=== PATIENT | female | born 1930 | race Caucasian/White ===

== ENCOUNTER → 2018-05-26 | Outpatient (CLI) | payer MEDICARE, OTHER ==
--- NOTE | 2018-05-26 13:22 | Diagnostic Imaging Report ---
EXAMINATION: PA and lateral views of the chest. COMPARISON: None CLINICAL HISTORY: Cough DISCUSSION: Lungs are well-inflated. Biapical pleural-parenchymal scarring and coarse prominence of the pulmonary interstitium, likely age-related fibrotic change. No airspace consolidation, pleural effusion, or pneumothorax. Tortuous thoracic aorta with atherosclerotic calcification. Normal heart size without overt pulmonary edema. Healing or healed right clavicular fracture deformity. No acute osseous abnormality. Presumed gastric band apparatus projects over the mid epigastrium. IMPRESSION: No acute cardiopulmonary abnormality. No consolidative pneumonia. Signed by: Dr. Sen Rubio M.D. on 05/26/2018 1:19 PM
== END ==
LOC: RAD 12:34
PROVIDERS: ATTEND Internal Medicine
DX: R05 Cough (principal)
CPT/HCPCS: 71046

== ENCOUNTER 2018-10-02 11:47 | Emergency (ER) | payer MEDICARE, OTHER ==
[~2018-10-02] VITALS: Ht 157.5 cm; Wt 59.0 kg
[2018-10-02] MEDS ORDERED: CITRACAL + D E1 EACH PO (12:04)
[2018-10-02] MEDS ORDERED: VITAMIN B-121000 MCG PO (12:04)
[2018-10-02] MEDS ORDERED: VITAMIN D1000 UNI1 PO (12:04)
[2018-10-02] MEDS ORDERED: EVISTA60 MG PO (12:04)
[2018-10-02] MEDS ORDERED: ETODOLAC400 M1 PO (12:04)
[2018-10-02] MEDS ORDERED: PRAVASTATIN SOD80 MG PO (12:04)
[2018-10-02] MEDS ORDERED: TRIAMTERENE-HCTZ1 EA PO (12:04)
[2018-10-02] MEDS ORDERED: JANUVIA100 MG PO (12:04)
[2018-10-02] MEDS ORDERED: FLONASE (12:04)
[2018-10-02] MEDS ORDERED: LEVOTHYROXINE75 MCG PO (12:04)
[2018-10-02] MEDS ORDERED: ACTOS30 MG PO (12:04)
[2018-10-02] MEDS ORDERED: NEXIUM40 MG PO (12:04)
[2018-10-02 12:19] LABS: BASOPHILS % 0.4 % (0.0-1.0); EOSINOPHILS # (AUTO) 0.2 (0.0-0.4); EOSINOPHILS % 2.5 % (0.0-6.0); HEMATOCRIT 36.7 % (34.2-44.1); LYMPHOCYTES # (AUTO) 1.5 (1.0-3.2); LYMPHOCYTES % 16.7 % (18.0-39.1); MEAN CORPUSCULAR HEMOGLOBIN 31.3 pg (28-32); MEAN CORPUSCULAR HGB CONC 32.7 g/dL (31-35); MEAN CORPUSCULAR VOLUME 95.6 fL (81-99); MONOCYTES # (AUTO) 0.4 (0.2-0.8); MONOCYTES % 4.2 % (4.4-11.3); NEUTROPHILS # (AUTO) 6.9 (2.1-6.9); NEUTROPHILS % 75.4 % (38.7-80.0); PLATELET COUNT 223 x10e3/uL (140-360); RED BLOOD COUNT 3.84 x10e6/uL (3.6-5.1); RED CELL DISTRIBUTION WIDTH 14.7 % (11.7-14.4)
[2018-10-02 12:23] LABS: INR 0.91; PROTHROMBIN TIME 12.7 seconds (11.9-14.5)
[2018-10-02 12:24] LABS: PARTIAL THROMBOPLASTIN TIME 26.9 seconds (23.8-35.5)
--- NOTE | 2018-10-02 12:36 | Diagnostic Imaging Report ---
Exam: Pelvic radiograph-1 view History: Fall. Comparison: None. Findings: No evidence of acute fracture or malalignment. There are mild degenerative changes in the bilateral hips and pubic symphysis. Status post abdominal hernia mesh repair. Impression: No acute radiographic abnormality. Signed by: Dr. Pearl Chavez MD on 10/02/2018 12:33 PM
--- NOTE | 2018-10-02 12:40 | Diagnostic Imaging Report ---
Exam: Left hand radiographs-3 views History: Status post fall. Comparison: None. Findings: There is diffuse osteopenia. No evidence of acute displaced fracture or malalignment. There are severe interphalangeal and first carpometacarpal joint degenerative changes. Impression: Diffuse osteopenia without evidence of acute fracture or malalignment. Signed by: Dr. Pearl Chavez MD on 10/02/2018 12:37 PM
--- NOTE | 2018-10-02 12:54 | Diagnostic Imaging Report ---
EXAMINATION: CHEST SINGLE (PORTABLE) INDICATION: Status post fall. COMPARISON: Chest radiograph 05/26/2018. FINDINGS: TUBES and LINES: None. LUNGS: Lungs are well inflated. There is no evidence of pneumonia or pulmonary edema. Biapical pleural-parenchymal opacity with interstitial opacities, which may represent age-related fibrotic changes or sequela of prior granulomatous disease. Mild bronchial wall thickening. PLEURA: No pleural effusion or pneumothorax. HEART AND MEDIASTINUM: The cardiomediastinal silhouette is unremarkable. Tortuous thoracic aorta with atherosclerotic calcifications. BONES AND SOFT TISSUES: No acute osseous amount he. Healed right midclavicular fracture. UPPER ABDOMEN: No free air under the diaphragm. Presumed gastric band projects over the upper abdomen. IMPRESSION: No evidence of acute traumatic abnormality. Signed by: Dr. Pearl Chavez MD on 10/02/2018 12:50 PM
[2018-10-02 13:08] LABS: BILIRUBIN,URINE NEGATIVE (NEGATIVE); CLARITY,URINE CLEAR (CLEAR); COLOR,URINE YELLOW (YELLOW); KETONES,URINE NEGATIVE (NEGATIVE); LEUKOCYTE ESTERASE ,URINE NEGATIVE (NEGATIVE); NITRITE,URINE NEGATIVE (NEGATIVE); PROTEIN,URINE DIPSTICK NEGATIVE (NEGATIVE); URINE UROBILINOGEN 0.2 mg/dL (0.2 - 1)
[2018-10-02 13:09] LABS: ALBUMIN 3.2 g/dL (3.5-5.0); ALKALINE PHOSPHATASE 41 IU/L (40-150); ANION GAP 14.8 mmol/L (8-16); BLOOD UREA NITROGEN 13 mg/dL (7-26); BUN/CREATININE RATIO 11 (6-25); CALCIUM 9.3 mg/dL (8.4-10.2); CARBON DIOXIDE 23 mmol/L (22-29); CHLORIDE 108 mmol/L (98-107); CREATINE KINASE 41 IU/L (29-168); CREATININE, SERUM 1.17 mg/dL (0.57-1.11); EST GLOMERULAR FILTRATION RATE 44 ML/MIN (60-); GLUCOSE 164 mg/dL (74-118); POTASSIUM 3.8 mmol/L (3.5-5.1); SODIUM 142 mmol/L (136-145)
[2018-10-02 13:11] LABS: ALANINE AMINOTRANSFERASE < 6 IU/L (0-55)
[2018-10-02 13:29] LABS: EPITHELIAL CELLS,URINE MANY /LPF; RBC,URINE 0-5 /HPF (0-5); WBC,URINE (MAN) 0-5 /HPF (0-5)
[2018-10-02 13:30] LABS: BACTERIA,URINE MANY /HPF
--- NOTE | 2018-10-02 13:36 | Diagnostic Imaging Report ---
EXAMINATION: Head and cervical spine CT without contrast. HISTORY: Status post fall, head trauma, pain COMPARISON: None. TECHNIQUE: Multidetector axial images were obtained without contrast from the foramen magnum to the vertex and through the cervical spine. The images were reconstructed using brain and bone algorithms. Thin section brain images were reformatted into coronal and sagittal planes. Dose modulation, iterative reconstruction, and/or weight based adjustment of the mA/kV was utilized to reduce the radiation dose to as low as reasonably achievable. HEAD CT FINDINGS: Skull/scalp: Left superior parietal scalp swelling/hematoma without underlying fractures. Parenchyma: Scattered and confluent periventricular white matter hypodensities, most likely nonspecific chronic microvascular ischemic changes. No mass, hemorrhage or acute cortical infarct. Brain volume: Generalized volume loss, with particular prominence of the parietal sulci, bilateral temporal horns and bilateral hippocampal atrophy, which can be seen in patient's with Alzheimer's disease in the correct clinical setting. Ventricles: No hydrocephalus or displacement. Arteries: No density suggestive of thrombus. Dural sinuses: No abnormal density. Extra-axial spaces: No abnormal density. Foramen magnum: No mass, Chiari malformation, or basilar invagination. Sella: No obvious mass. Paranasal/mastoid sinuses: Imaged portions unremarkable. CERVICAL SPINE CT FINDINGS: Alignment:Normal alignment and lordosis. Soft tissues: Normal. Vertebrae: Normal height and density. No acute fracture, infection or neoplasm. Degenerative changes: C1-C2: Normal C2-C3: Normal C3-C4: Facet arthrosis bilaterally. Minimal foraminal narrowing. C4-C5: Mild facet arthrosis without stenosis. C5-C6: Disc osteophyte complex formation, bilateral uncovertebral and facet hypertrophy. Mild spinal canal and foraminal stenoses. C6-C7: Disc osteophyte complex formation, bilateral uncovertebral and facet arthrosis. Minimal canal and foraminal narrowing. C7-T1: Normal Incidental findings: Remote right clavicular fracture with prominent callus formation. IMPRESSION: Head CT: 1. No acute postraumatic intracranial hemorrhage. 2. Left parietal scalp hematoma without underlying fractures. 3. Mild to moderate in microvascular ischemic changes. Cervical spine CT: 1. No acute fractures or dislocations. 2. Chronic degenerative changes as described. Note: Acute post traumatic spinal cord, vascular or ligamentous injury cannot adequately be assessed with CT. Signed by: Dr. Ladi Sher M.D. on 10/02/2018 1:33 PM
[2018-10-02 13:43] VITALS: BP 153/80
== END 2018-10-02 14:12 | disposition home or self-care (01) ==
LOC: ER 11:47
DX: S00.93XA Contusion of unspecified part of head, initial encounter (principal); S60.222A Contusion of left hand, initial encounter; W01.0XXA Fall on same level from slipping, tripping and stumbling without subsequent striking against object, initial encounter; Y92.001 Dining room of unspecified non-institutional (private) residence as the place of occurrence of the external cause; I10 Essential (primary) hypertension; E11.9 Type 2 diabetes mellitus without complications; E03.9 Hypothyroidism, unspecified; K21.9 Gastro-esophageal reflux disease without esophagitis; F03.90 Unspecified dementia, unspecified severity, without behavioral disturbance, psychotic disturbance, mood disturbance, and anxiety; M19.90 Unspecified osteoarthritis, unspecified site; M81.0 Age-related osteoporosis without current pathological fracture; Z79.84 Long term (current) use of oral hypoglycemic drugs; Z88.5 Allergy status to narcotic agent
CPT/HCPCS: 36415; 70450; 71045; 72125; 72170; 80053; 81001; 82550; 82553; 84484; 85025; 85610; 85730; 87086; 93005; 99284

== ENCOUNTER → 2019-04-25 | Outpatient (CLI) | payer MEDICARE, OTHER ==
[~2019-04-25] MED LIST: ACTOS30 MG PO; CITRACAL + D E1 EACH PO; ETODOLAC400 M1 PO; EVISTA60 MG PO; FLONASE; JANUVIA100 MG PO; LEVOTHYROXINE75 MCG PO; NEXIUM40 MG PO; PRAVASTATIN SOD80 MG PO; TRIAMTERENE-HCTZ1 EA PO; VITAMIN B-121000 MCG PO; VITAMIN D1000 UNI1 PO
--- NOTE | 2019-04-25 16:52 | Diagnostic Imaging Report ---
EXAMINATION: CHEST 2 VIEWS INDICATION: Chest pain, breast pain COMPARISON: Chest radiograph 10/02/2018 FINDINGS: LINES/TUBES:None LUNGS:The lungs are mildly hyperinflated. No focal pneumonia or pulmonary edema. Stable mildly prominent interstitial opacities. PLEURA:No pleural effusion or pneumothorax. MEDIASTINUM:The cardiomediastinal silhouette appears unchanged in size and shape. Atherosclerotic calcifications of the thoracic aorta. BONES/SOFT TISSUES:No acute osseous injury. ABDOMEN:No free air under the diaphragm. Radiopaque band projects over the left upper quadrant. IMPRESSION: Mildly hyperinflated lungs. No focal pneumonia or pulmonary edema. No radiographic evidence of acute traumatic injury to the thorax. Signed by: Robinson Zepeda MD on 04/25/2019 4:49 PM
== END ==
LOC: RAD 15:52
PROVIDERS: ATTEND Internal Medicine
DX: S20.219A Contusion of unspecified front wall of thorax, initial encounter (principal)
CPT/HCPCS: 71046